=== PATIENT | male | born 1995 | race Caucasian/White ===

== ENCOUNTER 2023-02-04 11:33 | Day surgery (SDC) | payer BC ==
[2023-02-04] VITALS (10 sets, daily range): BP systolic 107–129; BP diastolic 67–86
[~2023-02-04] VITALS: Ht 182.9 cm; Wt 87.7 kg
[2023-02-04] MEDS ORDERED: OMEP20ER PO (12:19)
--- NOTE | 2023-02-04 13:08 | NUR ---
2 IV ATTEMPTS BY EDIN PLASCENCIA; 3RD INSERTION BY EDIN PAYTON
--- NOTE | 2023-02-04 17:50 | NUR ---
HOME WITH PERSONAL BELONGINGS WITH PT Patient up to Ambulate independently. Gait steady. Discharge instructions reviewed with patient. Patient verbalizes understanding. Copy given to patient to take home. Patient States Post-Procedure ride home has been arranged. Discharged via wheelchair to private car for ride home.IV DC WITH CATH INTACT
== END 2023-02-04 22:45 | disposition home or self-care (01) ==
LOC: ORSCMMR 11:33 → ORD 11:45 → ORSCMMR 11:45
PROVIDERS: Orthopaedic Surgery
PROC: 0PST34Z Reposition Right Finger Phalanx with Internal Fixation Device, Percutaneous Approach (ICD-10-PCS; principal; 2023-02-04 15:00)
DX: S62.602A Fracture of unspecified phalanx of right middle finger, initial encounter for closed fracture (principal); W16.92XA Jumping or diving into unspecified water causing other injury, initial encounter; K21.9 Gastro-esophageal reflux disease without esophagitis; Z79.899 Other long term (current) drug therapy
CPT/HCPCS: J0690; J1100; J2250; J2405; J2704; J3010; J7120

== ENCOUNTER → 2023-12-21 | Outpatient (CLI) | payer BC ==
[~2023-12-21] MED LIST: OMEP20ER PO
== END ==
LOC: LAB SHORT 08:21 → LAB 08:21
DX: R10.13 Epigastric pain (principal)
CPT/HCPCS: 87338

== ENCOUNTER 2023-12-29 07:39 | Day surgery (SDC) | payer BC ==
[~2023-12-29] VITALS: Ht 182.9 cm; Wt 87.3 kg
[~2023-12-29 07:39] MED LIST changes: +Lactated Ringer's 1,000 ML IV ONE; +propofoL 50 ML IV ONE
[2023-12-29] MEDS ORDERED: Lactated Ringer's 1,000 ML IV ONE (08:14)
--- NOTE | 2023-12-29 08:40 | NUR ---
12/29/23 0839 Marky Smith MA.: PT REPORTED PHX OF "FEELING LIKE I'M GOING TO PASS OUT WITH IV STARTS." DURING IV START, PT PASSED OUT AND APPEARED TO HAVE CONVULSION MOVEMENTS WHEN HE WAS "COMING TO". OH CALLED FOR HELP TO JOVANNA Paulson RN. PT WAS PALE. RN LAID PT FLAT. ONCE PT WAS ALERT, OH NOTIFIED MD. BP 114/78. MD ASSESSED PT AND ORDERED FLUIDS TO BE WIDE OPEN IN PRE-OP. THIS RN STARTED FLUIDS AND ASSESSED PT. PT WAS A&OX4, AND STATED HE FELT "MUCH BETTER THAN BEFORE." PT DENIED NAUSEA OR LIGHT HEADED FEELING. PT TOLD THAT IF HE STARTS FEELING LIGHT-HEADED OR NAUSEOUS, TO CALL, CALL LIGHT WITHIN REACH.
[2023-12-29 10:11] VITALS: BP 118/66
--- NOTE | 2023-12-29 10:11 | NUR ---
12/29/23 [facility]1 Kelly Noyola 0940: PATIENT ASKED HOW LONG BEFORE HE CAN DRINK ALCOHOL, RN STATED THAT PER POLICY PATIENTS ARE INSTRUCTED TO REFRAIN FROM DRINKING ALCOHOL FOR 24 HOURS POST PROCEDURE, DISCUSSED WITH AT BEDSIDE. RN EXPLAINED THAT ALCOHOL CAN INTERACT POORLY WITH SEDATING MEDICATIONS RECEIVED DURING THIS TYPE OF PROCEDURE AND CAN LEAD TO OVERSEDATION AND OTHER RISKS. PATIENT AND VERBALIZED UNDERSTANDING. 0941: PATIENT INSTRUCTED AND REMINDED NO DRIVING UNTIL TOMORROW PER DR SHOEMAKER, PER POLICY NO DRIVING FOR [address] SHOEMAKER INSTRUCTED PATIENT WHILE HE WAS IN THE ROOM THAT PATIENT SHOULD NOT DRIVE "UNTIL TOMORROW".
== END 2023-12-29 09:59 | disposition home or self-care (01) ==
LOC: ORSCSDS 07:39
PROVIDERS: Specialist
PROC: 0DB58ZX Excision of Esophagus, Via Natural or Artificial Opening Endoscopic, Diagnostic (ICD-10-PCS; principal; 2023-12-29 09:00)
PROC: 0DB68ZX Excision of Stomach, Via Natural or Artificial Opening Endoscopic, Diagnostic (ICD-10-PCS; principal; 2023-12-29 09:00)
DX: K21.9 Gastro-esophageal reflux disease without esophagitis (principal); K31.89 Other diseases of stomach and duodenum; K44.9 Diaphragmatic hernia without obstruction or gangrene; Z79.899 Other long term (current) drug therapy
CPT/HCPCS: 88305; 88342; J2704; J7120